=== PATIENT | female | born 1975 | race Caucasian/White ===

== ENCOUNTER → 2020-02-08 10:40 | Outpatient (CLI) | payer OTHER, SELFPAY ==
--- NOTE | ~2020-02-08 | MR_ITS ---
EXAMINATION: MR lumbar spine wo [facility] EXAM DATE: 02/08/2020 11:32 INDICATION: Lumbar radiculopathy. Low back pain and bilateral hip and leg pain. TECHNIQUE: Multi-sequential, multiplanar MR images of the lumbar spine were obtained without contrast . Sagittal T1, T2, T2 fat saturation images. Axial T2 weighted images. There is no prior study for comparison. FINDINGS: Mild disc disease L5-S1. The vertebral body and disc heights are otherwise well maintained. The vertebral bodies are aligned in the AP dimension. The conus medullaris terminates at the L1/2 le gilda and has normal signal intensity and morphology. There are no suspicious marrow signal abnormalit ies. Paraspinal soft tissue is unremarkable. Level by level evaluation: T12-L1: Disc does not extend beyond the endplate margin. Facet arthropathy: Mild to moderate. Neural foraminal stenosis: No stenosis. Central canal stenosis: No stenosis. L1-L2: Disc does not extend beyond the endplate margin. Facet arthropathy: Mild. Neural foraminal stenosis: No stenosis. Central canal stenosis: No stenosis. L2-L3: Disc does not extend beyond the endplate margin. Facet arthropathy: Mild to moderate. Neural foraminal stenosis: No stenosis. Central canal stenosis: No stenosis. L3-L4: There is a minimal diffuse disc bulge. Facet arthropathy: Mild to moderate. Neural foraminal stenosis: Mild bilateral. Central canal stenosis: No stenosis. L4-L5: There is a mild diffuse disc bulge. Facet arthropathy: Moderate. Neural foraminal stenosis: Mild to moderate bilateral. Central canal stenosis: Mild. L5-S1: There is a mild diffuse disc bulge. Facet arthropathy: Moderate. Neural foraminal stenosis: Moderate bilateral. Central canal stenosis: Mild. IMPRESSION: 1. L5-S1 moderate bilateral neural foraminal stenosis. 2. Lesser spondylosis at other levels. Reviewed, dictated and finalized at location A.
== END ==
PROVIDERS: Visit Provider Pain Medicine Interventional Pain Medicine
DX: M54.16 Radiculopathy, lumbar region (principal); G89.4 Chronic pain syndrome; M54.14 Radiculopathy, thoracic region
CPT/HCPCS: 72148

== ENCOUNTER → 2020-02-08 10:50 | Outpatient (CLI) | payer OTHER, SELFPAY ==
--- NOTE | ~2020-02-08 | XR_ITS ---
XR hip BI wo pelvis DATE: 02/08/2020 12:10 INDICATION: Hip pain TECHNIQUE: AP and lateral views of each hip COMPARISON: 12/02/2012 bilateral hip FINDINGS: Surgical clips overlie left and right pelvis. The pubic symphysis and sacroiliac joints appear intact. Hip joint spaces are symmetric and well pres erved. Mild osteoarthritis of each hip. No fracture, dislocation, avascular necrosis or bone destruction of either hip is evident. IMPRESSION: Mild bilateral hip osteoarthritis Reviewed, dictated and finalized at location B.
== END ==
DX: G89.4 Chronic pain syndrome (principal); M54.14 Radiculopathy, thoracic region; M16.0 Bilateral primary osteoarthritis of hip
CPT/HCPCS: 73521

== ENCOUNTER 2020-04-20 09:40 | Outpatient (CLI) | payer OTHER, SELFPAY ==
[2020-04-20 10:08] LABS: Basophils Absolute Auto 0.1 K/mm3 (0.0-0.1); Basophils Percent Auto 0.7 % (0.2-1.2); Eosinophils Absolute Auto 0.1 K/mm3 (0-0.3); Eosinophils Percent Auto 1.3 % (0-4.4); Hematocrit 43.8 % (37.0-47.0); Hemoglobin 14.7 g/dL (12.0-15.0); Immature Granulocyte Absolute 0.04 K/mm3 (0.00-0.031); Immature Granulocyte Percent A 0.5 % (0-0.5); Lymphocytes Absolute Auto 2.99 K/mm3 (0.9-3.2); Lymphocytes Percent Auto 34.6 % (18.3-44.2); Mean Corpuscular HGB Conc 33.6 g/dl (32-36); Mean Corpuscular Hemoglobin 31.5 pg (26-34); Mean Corpuscular Volume 93.8 fl (80-100); Mean Platelet Volume 8.6 fl (7.4-10.4); Monocytes Absolute Auto 0.8 K/mm3 (0.1-0.6); Neutrophils Absolute Auto 4.7 K/mm3 (1.3-6.7); Neutrophils Percent Auto 53.9 % (45.5-73.1); Platelet Count Result 282 k/mm3 (150-375); Red Blood Count 4.67 M/mm3 (4.2-5.4); Red Cell Distribution Width 12.3 % (11.5-14.5); White Blood Count 8.7 K/mm3 (4.5-10.0)
[2020-04-20 10:21] LABS: Alanine Aminotransferase 21 U/L (4-35); Albumin Level 4.1 g/dL (3.5-5.1); Alkaline Phosphatase 64 U/L (38-126); Anion Gap 5 mmol/L (8-16); Aspartate Amino Transferase 18 U/L (14-36); Bilirubin,Total 0.5 mg/dL (0.2-1.3); Blood Urea Nitrogen 15 mg/dL (7-17); Calcium 8.8 mg/dL (8.4-10.2); Carbon Dioxide 31 mmol/L (22-30); Chloride 103 mmol/L (98-107); Cholesterol 261 mg/dL (0-200); Estimated Glomerular Filt Rate > 60; Glucose 85 mg/dL (65-105); HDL Direct 48 mg/dL; Potassium 4.3 mmol/L (3.4-5.0); Sodium 139 mmol/L (137-145); Triglycerides 236 mg/dL (<150)
[2020-04-20 10:33] LABS: LDL Cholesterol Direct 188 mg/dL
[2020-04-20 10:48] LABS: Creatinine Urine 92.9 mg/dL
[2020-04-20 10:55] LABS: MALB Creatinine Ratio < 6.5 mg/g (0-30); Microalbumin Urine Random < 6.0 mg/L (0-16.7)
== END 2020-04-20 09:41 | disposition home or self-care (01) ==
PROVIDERS: PCP Internal Medicine; Visit Provider Internal Medicine
DX: I10 Essential (primary) hypertension (principal); E78.5 Hyperlipidemia, unspecified
CPT/HCPCS: 36415; 80053; 80061; 82043; 85025

== ENCOUNTER 2020-05-17 09:55 | Outpatient (CLI) | payer OTHER, SELFPAY ==
--- NOTE | ~2020-05-17 | MM_ITS ---
EXAMINATION: MM screening [facility] BI w danii HISTORY: Screening mammogram TECHNIQUE: Craniocaudal and mediolateral oblique 3-D tomosynthesis images were obtained and synthetic 2-D images were generated. CAD analysis was submitted and interpreted. COMPARISON: 07/12/2014, 09/16/2011, 01/09/2009 BREAST PARENCHYMAL COMPOSITION: There are scattered areas of fibroglandular density. FINDINGS: There is no evidence of suspicious mass, calcification, or architectural distortion to sugg est malignancy in either breast. There has been no suspicious interval change. IMPRESSION: 1. No mammographic evidence of malignancy. 2. Recommend routine screening mammography in one year. BI-RADS Category 1: Negative Reviewed, dictated and finalized at location A. 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
== END 2020-05-17 09:56 | disposition home or self-care (01) ==
LOC: ANHIMG 09:58
PROVIDERS: PCP Internal Medicine; Visit Provider Internal Medicine
DX: Z12.31 Encounter for screening mammogram for malignant neoplasm of breast (principal)
CPT/HCPCS: 77063; 77067

== ENCOUNTER 2021-02-01 09:28 | Outpatient (CLI) | payer OTHER, SELFPAY ==
[2021-02-01 09:53] LABS: Basophils Absolute Auto 0.1 K/mm3 (0.0-0.1); Basophils Percent Auto 0.7 % (0.2-1.2); Eosinophils Absolute Auto 0.2 K/mm3 (0-0.3); Eosinophils Percent Auto 2.5 % (0-4.4); Hematocrit 41.1 % (37.0-47.0); Hemoglobin 13.5 g/dL (12.0-15.0); Immature Granulocyte Absolute 0.03 K/mm3 (0.00-0.031); Immature Granulocyte Percent A 0.4 % (0-0.5); Lymphocytes Absolute Auto 2.39 K/mm3 (0.9-3.2); Lymphocytes Percent Auto 33.6 % (18.3-44.2); Mean Corpuscular HGB Conc 32.8 g/dl (32-36); Mean Corpuscular Hemoglobin 30.7 pg (26-34); Mean Corpuscular Volume 93.4 fl (80-100); Mean Platelet Volume 8.8 fl (7.4-10.4); Monocytes Absolute Auto 0.6 K/mm3 (0.1-0.6); Neutrophils Absolute Auto 3.9 K/mm3 (1.3-6.7); Neutrophils Percent Auto 54.8 % (45.5-73.1); Platelet Count Result 285 k/mm3 (150-375); Red Cell Distribution Width 12.7 % (11.5-14.5); White Blood Count 7.1 K/mm3 (4.5-10.0)
[2021-02-01 10:07] LABS: Alanine Aminotransferase 26 U/L (4-35); Alkaline Phosphatase 76 U/L (38-126); Anion Gap 8 mmol/L (8-16); Aspartate Amino Transferase 23 U/L (14-36); Bilirubin,Total 0.4 mg/dL (0.2-1.3); Blood Urea Nitrogen 14 mg/dL (7-17); Calcium 9.4 mg/dL (8.4-10.2); Carbon Dioxide 27 mmol/L (22-30); Chloride 103 mmol/L (98-107); Estimated Glomerular Filt Rate > 60; Glucose 101 mg/dL (65-110); Potassium 4.3 mmol/L (3.4-5.0); Sodium 138 mmol/L (137-145)
== END 2021-02-01 09:29 | disposition home or self-care (01) ==
PROVIDERS: PCP Internal Medicine; Visit Provider Internal Medicine
DX: E55.9 Vitamin D deficiency, unspecified (principal); E78.5 Hyperlipidemia, unspecified; F41.1 Generalized anxiety disorder; I10 Essential (primary) hypertension; R79.89 Other specified abnormal findings of blood chemistry
CPT/HCPCS: 36415; 80053; 82306; 84443; 85025

== ENCOUNTER 2021-02-14 10:44 | Outpatient (CLI) | payer OTHER, SELFPAY | END 2021-02-14 10:45 | disposition home or self-care (01) | PROVIDERS: PCP Internal Medicine; Visit Provider Internal Medicine | DX: R79.89 Other specified abnormal findings of blood chemistry (principal) | CPT/HCPCS: 36415; 84439; 84443 ==

== ENCOUNTER 2021-06-13 10:09 | Outpatient (CLI) | payer OTHER, SELFPAY ==
--- NOTE | 2021-06-13 12:24 | WPDPFTINT ---
PFT Procedure Performed PFT Procedure Performed Spirometry with Pre/Post Bronchodilator Plethysmography (Lung Vol) Diffusing Cap (DLCO) Flow Vol Loop PFT Interpretation Lung volumes were measured with the body plethysmography method. The severely diminished expiratory reserve volume is related to morbid obesity. The mildly reduced total lung capacity is indicative restrictive respiratory disease. Spirometry showed normal expiratory flow rates and a normal FEV1 to FVC ratio of 87%. Following administration of a bronchodilator, there was no significant increase in expiratory flow rates. Lung diffusion capacity is mildly reduced at 60% predicted. The flow volume loop is unremarkable. Impression: Mild restrictive respiratory disease, mild reduction in lung diffusion capacity.
== END 2021-06-13 10:10 | disposition home or self-care (01) ==
LOC: ANHPFT 10:13
PROVIDERS: Visit Provider Internal Medicine
DX: J44.9 Chronic obstructive pulmonary disease, unspecified (principal); R94.2 Abnormal results of pulmonary function studies
CPT/HCPCS: 94060; 94726; 94729

== ENCOUNTER → 2021-07-02 02:02 | Outpatient (CLI) | payer OTHER, SELFPAY ==
[2021-07-02 18:04] LABS: Influenza Control Positive
[2021-07-03 03:59] LABS: SARS-CoV-2 RNA PCR Negative
== END ==
PROVIDERS: Internal Medicine; PCP Internal Medicine; Visit Provider Nurse Practitioner
DX: R68.89 Other general symptoms and signs (principal); Z20.822 Contact with and (suspected) exposure to COVID-19
CPT/HCPCS: 87804; C9803; U0003; U0005

== ENCOUNTER 2021-07-18 10:57 | Outpatient (CLI) | payer OTHER, SELFPAY ==
[2021-07-18 13:40] LABS: Free T4 Free Thyroxine 0.96 ng/mL (0.78-2.19)
[2021-07-24 05:51] LABS: Triiodothyronine T3 Free 2.9 pg/mL (2.3-4.2)
== END 2021-07-18 10:58 | disposition home or self-care (01) ==
LOC: ANHWCLAB 11:04
PROVIDERS: PCP Internal Medicine; Visit Provider Internal Medicine Endocrinology, Diabetes & Metabolism
DX: E03.8 Other specified hypothyroidism (principal); E04.9 Nontoxic goiter, unspecified
CPT/HCPCS: 36415; 84439; 84443; 84481

== ENCOUNTER 2021-09-20 09:47 | Outpatient (CLI) | payer OTHER, SELFPAY ==
--- NOTE | ~2021-09-20 | US_ITS ---
EXAMINATION: US thyroid DATE: 09/20/2021 10:11 INDICATION: Hypothyroidism. TECHNIQUE: Multiple ultrasound images of the thyroid were obtained. COMPARISON: Ultrasound 04/05/2013 FINDINGS: The right thyroid lobe measures 3.9 x 1.9 x 1.9 cm. The left thyroid lobe measures 4.0 x 2.1 x 1.7 c m. The thyroid is diffusely heterogeneous and hypoechoic. No discrete nodule. Vascularity is normal. IMPRESSION: 1. Heterogeneous thyroid, likely chronic lymphocytic (Gera) thyroiditis. Reviewed, dictated and finalized at location A.
== END 2021-09-20 09:48 | disposition home or self-care (01) ==
LOC: ANHIMG 09:48
PROVIDERS: PCP Internal Medicine; Visit Provider Internal Medicine Endocrinology, Diabetes & Metabolism
DX: E03.8 Other specified hypothyroidism (principal)
CPT/HCPCS: 76536

== ENCOUNTER 2021-10-02 10:24 | Outpatient (CLI) | payer OTHER, SELFPAY ==
[2021-10-05 06:05] LABS: Triiodothyronine T3 Free 3.4 pg/mL (2.3-4.2)
== END 2021-10-02 10:25 | disposition home or self-care (01) ==
LOC: ANHLAB 10:26
PROVIDERS: PCP Internal Medicine; Visit Provider Internal Medicine Endocrinology, Diabetes & Metabolism
DX: E03.8 Other specified hypothyroidism (principal); E04.9 Nontoxic goiter, unspecified
CPT/HCPCS: 36415; 84439; 84443; 84481

== ENCOUNTER 2021-10-25 09:01 | Outpatient (CLI) | payer OTHER, SELFPAY ==
--- NOTE | ~2021-10-25 | XR_ITS ---
EXAMINATION: XR knee RT 3V DATE: 10/25/2021 09:31 INDICATION: Right knee pain. TECHNIQUE: 3 views of right knee were obtained. COMPARISON: Right knee radiographs 07/19/2015 FINDINGS: There is lateral subluxation of patella. No fracture. There is at least mild osteoarthritis of medial and lateral compartments. There is moderate osteoarthritis of patellofemoral compartment. No knee joint effusion. IMPRESSION: 1. Moderate right knee osteoarthritis. Reviewed, dictated and finalized at location B.
[2021-10-25 09:24] LABS: Basophils Absolute Auto 0.1 K/mm3 (0.0-0.1); Basophils Percent Auto 1.1 % (0.2-1.2); Eosinophils Absolute Auto 0.3 K/mm3 (0-0.3); Eosinophils Percent Auto 3.5 % (0-4.4); Hematocrit 41.4 % (37.0-47.0); Hemoglobin 13.7 g/dL (12.0-15.0); Immature Granulocyte Absolute 0.02 K/mm3 (0.00-0.031); Immature Granulocyte Percent A 0.2 % (0-0.5); Lymphocytes Absolute Auto 2.46 K/mm3 (0.9-3.2); Lymphocytes Percent Auto 30.3 % (18.3-44.2); Mean Corpuscular HGB Conc 33.1 g/dl (32-36); Mean Corpuscular Hemoglobin 30.4 pg (26-34); Mean Platelet Volume 8.7 fl (7.4-10.4); Monocytes Absolute Auto 0.8 K/mm3 (0.1-0.6); Monocytes Percent Auto 9.7 % (2.6-8.5); Neutrophils Absolute Auto 4.5 K/mm3 (1.3-6.7); Neutrophils Percent Auto 55.2 % (45.5-73.1); Platelet Count Result 297 k/mm3 (150-375); Red Cell Distribution Width 12.9 % (11.5-14.5); White Blood Count 8.1 K/mm3 (4.5-10.0)
[2021-10-25 09:37] LABS: Alanine Aminotransferase 19 U/L (4-35); Albumin Level 4.1 g/dL (3.5-5.1); Alkaline Phosphatase 75 U/L (38-126); Anion Gap 6 mmol/L (8-16); Aspartate Amino Transferase 22 U/L (14-36); Bilirubin,Total 0.2 mg/dL (0.2-1.3); Blood Urea Nitrogen 15 mg/dL (7-17); Calcium 8.3 mg/dL (8.4-10.2); Carbon Dioxide 29 mmol/L (22-30); Chloride 103 mmol/L (98-107); Cholesterol 157 mg/dL (0-200); Estimated Glomerular Filt Rate > 60; Glucose 95 mg/dL (65-110); HDL Direct 42 mg/dL; Potassium 4.1 mmol/L (3.4-5.0); Sodium 138 mmol/L (137-145); Triglycerides 172 mg/dL (<150)
[2021-10-25 09:48] LABS: LDL Cholesterol Direct 76 mg/dL
[2021-10-25 10:09] LABS: Vitamin D 25 Hydroxy 26.5 ng/mL
== END 2021-10-25 09:02 | disposition home or self-care (01) ==
PROVIDERS: PCP Internal Medicine; Visit Provider Internal Medicine
DX: M17.11 Unilateral primary osteoarthritis, right knee (principal); F41.1 Generalized anxiety disorder; I10 Essential (primary) hypertension; E03.9 Hypothyroidism, unspecified; E78.2 Mixed hyperlipidemia
CPT/HCPCS: 36415; 73562; 80053; 80061; 82306; 85025

== ENCOUNTER 2021-11-27 01:13 | Day surgery (SDC) | payer OTHER, SELFPAY ==
[2021-11-13 13:37] VITALS: BMI 53.0
[2021-11-27 09:15] VITALS: BP 151/84; PULSE 97; RESP 20; TEMP 36.9; O2SAT 98
[2021-11-27] MEDS: LACTATED RINGERS 1,000 ML 150 ML IV CONT (09:30)
--- NOTE | 2021-11-27 09:57 | PM.HPGS ---
History of Present Illness History of Present Illness Consent: Risks, benefits, and alternatives have been discussed and questions answered. Patient agrees to proceed with procedure. Chief complaint: neoplasm screening Narrative: Maureen Davis is a 46 year old female here for screening colonoscopy, last one 5 years ago. Review of Systems Constitutional: Constitutional: Denies headache(s) and Denies weakness Eyes: Eyes: Denies blurry vision ENT: Reports Normal hearing present, Denies headache(s) and Denies neck pain Cardiovascular: Cardiovascular: Denies chest pain and Denies dyspnea Respiratory: Respiratory: Denies dyspnea Gastrointestinal: Gastrointestinal: Reports no additional gastrointestinal complaints Genitourinary: Genitourinary: Denies dysuria Musculoskeletal: Musculoskeletal: Denies neck pain Integumentary/Breasts: Skin/Breast: Denies dry skin Neurologic: Reports Normal hearing present, Denies headache(s) and Denies weakness Psychiatric: Psychiatric: Denies anxiety Endocrine: Endocrine: Denies change in body appearance Hematologic/Lymphatic: Hematologic/Lymphatic: Denies easy bleeding Allergic/Immunologic: Allergic/Immunologic: Denies urticaria PMFSH Past Medical History Medical History (System 10/08/21 @ 15:16 by Shanika Swain) Allergies Anxiety Arthritis Asthma Fibromyalgia Gall bladder disease H/O: HTN (hypertension) Headache, migraine IBS (irritable bowel syndrome) Osteoarthritis Thyroid disease Family History Family History (System 10/08/21 @ 15:16 by Shanika Swain) Sibling Family history of thyroid disease Hypertension Father Hypertension Mother Hypertension Family history of diabetes mellitus in first degree relative Other Alcoholism Asthma Cancer Cerebrovascular accident Depression Diabetes mellitus Family history of arthritis Family history of cardiovascular disease Heart disease Social History Social History (System 10/08/21 @ 15:16 by Shanika Swain) Years smoked: 9 Smoking status: Current every day smoker Tobacco type: cigarettes Second hand tobacco smoke exposure: No Smoking end date: 10/05/20 Alcohol intake: current Alcohol use details: rarely Substance use: never Substance use type: marijuana Other substance usage details: MJ couple times a week Last use: 11-11-21 Living arrangements: with family Spiritual care concerns: No Meds Home Medications and Allergies Home Medications Medication Instructions Recorded Confirmed Type escitalopram oxalate 20 mg tablet 20 mg PO DAILY 06/16/19 11/13/21 History (Lexapro) fluticasone propionate 50 2 spray intranasal DAILY #16 mL 09/07/19 11/13/21 Rx mcg/actuation nasal spray,suspension (Allergy Relief (fluticasone)) estradiol 0.5 mg tablet 0.5 mg PO DAILY 12/27/19 11/13/21 History trazodone 50 mg tablet 50 mg PO DAILY 12/27/19 11/13/21 History ibuprofen 800 mg tablet 800 mg PO ONCE 05/16/21 11/13/21 History omeprazole 40 mg capsule,delayed See Rx Instructions .Route 06/24/21 11/13/21 Rx release .COMPLEX #90 caps albuterol sulfate 90 mcg/actuation 1 inh inhalation Q4H PRN shortness 06/25/21 11/13/21 Rx aerosol inhaler of breath or wheezing #8.5 grams hydrochlorothiazide 12.5 mg tablet 12.5 mg PO DAILY #90 tabs 07/17/21 11/13/21 Rx lisinopril 20 mg tablet 20 mg PO DAILY #90 tabs 07/17/21 11/13/21 Rx rosuvastatin 40 mg tablet 40 mg PO DAILY #90 tabs 08/01/21 11/13/21 Rx levothyroxine 50 mcg tablet 50 mcg PO DAILY #90 tabs 10/02/21 11/13/21 Rx bupropion HCl 150 mg 24 hr tablet, 150 mg PO DAILY 10/07/21 11/13/21 History extended release tiotropium 2.5 mcg-olodaterol 2.5 2 puff inhalation DAILY #4 grams 10/07/21 11/13/21 Rx mcg/actuation mist for inhalation (Stiolto Respimat) Allergies Allergy/AdvReac Type Severity Reaction Status Date / Time Latex, Natural Rubber Allergy Severe BURNING Verified 11/27/21 09:13 propoxyphene Aller
--- NOTE | 2021-11-27 10:03 | WPDANESEPPF ---
Anes - Initial Pre Proc Eval Procedure: Operation Date: 11/27/21 10:15 Proposed Procedures p Screening Colonoscopy - Akshat Gill MD Date/Time: 11/27/21 10:03 Surgeon: Akshat Gill MD Pre Op Diagnosis: neoplasm screening Patient Data Age: 46 Gender: F Height: 1.57 m Weight: 129.5 kg Last Vital Signs Temp 98.4 F 11/27/21 09:15 Pulse 97 11/27/21 09:15 Resp 20 11/27/21 09:15 BP 151/84 H 11/27/21 09:15 Pulse Ox 98 11/27/21 09:15 O2 Del Method Room Air 11/27/21 09:15 Allergies Allergy/AdvReac Type Severity Reaction Status Date / Time Latex, Natural Rubber Allergy Severe BURNING Verified 11/27/21 09:13 propoxyphene Allergy Intermediate Unknown Verified 11/27/21 09:13 codeine AdvReac Mild Nausea and Verified 11/27/21 09:13 Vomiting ketorolac AdvReac Mild NAUSEA AND Verified 11/27/21 09:13 VOMITING tramadol AdvReac Mild N/V Verified 11/27/21 09:13 Home Medications Medication Instructions Recorded Confirmed Type escitalopram oxalate 20 mg tablet 20 mg PO DAILY 06/16/19 11/13/21 History (Lexapro) fluticasone propionate 50 2 spray intranasal DAILY #16 mL 09/07/19 11/13/21 Rx mcg/actuation nasal spray,suspension (Allergy Relief (fluticasone)) estradiol 0.5 mg tablet 0.5 mg PO DAILY 12/27/19 11/13/21 History trazodone 50 mg tablet 50 mg PO DAILY 12/27/19 11/13/21 History ibuprofen 800 mg tablet 800 mg PO ONCE 05/16/21 11/13/21 History omeprazole 40 mg capsule,delayed See Rx Instructions .Route 06/24/21 11/13/21 Rx release .COMPLEX #90 caps albuterol sulfate 90 mcg/actuation 1 inh inhalation Q4H PRN shortness 06/25/21 11/13/21 Rx aerosol inhaler of breath or wheezing #8.5 grams hydrochlorothiazide 12.5 mg tablet 12.5 mg PO DAILY #90 tabs 01/12/22 05/11/22 Rx lisinopril 20 mg tablet 20 mg PO DAILY #90 tabs 07/17/21 11/13/21 Rx rosuvastatin 40 mg tablet 40 mg PO DAILY #90 tabs 08/01/21 11/13/21 Rx levothyroxine 50 mcg tablet 50 mcg PO DAILY #90 tabs 10/02/21 11/13/21 Rx bupropion HCl 150 mg 24 hr tablet, 150 mg PO DAILY 10/07/21 11/13/21 History extended release tiotropium 2.5 mcg-olodaterol 2.5 2 puff inhalation DAILY #4 grams 10/07/21 11/13/21 Rx mcg/actuation mist for inhalation (Stiolto Respimat) Patient hx anesthesia problems: none Family hx anesthesia problems: none Results Review: All pre-operative results and documents have been reviewed as part of the pre-operative evaluation. [facility] Past Medical History Medical History (System 10/08/21 @ 15:16 by Shanika Swain) Allergies Anxiety Arthritis Asthma Fibromyalgia Gall bladder disease H/O: HTN (hypertension) Headache, migraine IBS (irritable bowel syndrome) Osteoarthritis Thyroid disease Family History Family History (System 10/08/21 @ 15:16 by Shanika Swain) Sibling Family history of thyroid disease Hypertension Father Hypertension Mother Hypertension Family history of diabetes mellitus in first degree relative Other Alcoholism Asthma Cancer Cerebrovascular accident Depression Diabetes mellitus Family history of arthritis Family history of cardiovascular disease Heart disease Social History Social History (System 10/08/21 @ 15:16 by Shanika Swain) Years smoked: 9 Smoking status: Current every day smoker Tobacco type: cigarettes Second hand tobacco smoke exposure: No Smoking end date: 10/05/20 Alcohol intake: current Alcohol use details: rarely Substance use: never Substance use type: marijuana Other substance usage details: MJ couple times a week Last use: 11-11-21 Living arrangements: with family Spiritual care concerns: No Anes - Eval Final PreProcedure Day of Procedure 11/27/21 10:03 Patient weight: super morbidly obese Heart: regular rate and rhythm Lungs: clear to auscultation Airway: Mallampati scale class III Neurological: alert and oriented Last oral intake: >/= 8 hours
[2021-11-27 10:20] VITALS: BP 102/59; PULSE 71; RESP 17; O2SAT 99
[2021-11-27 10:30] VITALS: BP 100/53; PULSE 70; RESP 18; O2SAT 99
[2021-11-27 10:40] VITALS: BP 105/56; PULSE 76; RESP 18; O2SAT 100
== END 2021-11-27 10:50 | disposition home or self-care (01) ==
PROVIDERS: PCP Internal Medicine; Visit Provider Internal Medicine Gastroenterology
PROC: 0DJD8ZZ Inspection of Lower Intestinal Tract, Via Natural or Artificial Opening Endoscopic (ICD-10-PCS; CPT 45378; principal; 2021-11-27 10:15)
DX: Z12.11 Encounter for screening for malignant neoplasm of colon (principal); D12.3 Benign neoplasm of transverse colon; K58.9 Irritable bowel syndrome, unspecified; I10 Essential (primary) hypertension; J45.909 Unspecified asthma, uncomplicated; M19.90 Unspecified osteoarthritis, unspecified site; M79.7 Fibromyalgia; F17.210 Nicotine dependence, cigarettes, uncomplicated; F41.9 Anxiety disorder, unspecified
CPT/HCPCS: 45385; 88305; J2704; J7120

== ENCOUNTER 2022-01-21 13:46 | Outpatient (CLI) | payer OTHER, SELFPAY ==
[2022-01-21 16:28] LABS: Basophils Absolute Auto 0.1 K/mm3 (0.0-0.1); Basophils Percent Auto 1.1 % (0.2-1.2); Eosinophils Absolute Auto 0.2 K/mm3 (0-0.3); Eosinophils Percent Auto 2.4 % (0-4.4); Hematocrit 44.9 % (37.0-47.0); Hemoglobin 14.6 g/dL (12.0-15.0); Immature Granulocyte Absolute 0.02 K/mm3 (0.00-0.031); Immature Granulocyte Percent A 0.3 % (0-0.5); Lymphocytes Absolute Auto 2.81 K/mm3 (0.9-3.2); Lymphocytes Percent Auto 37.9 % (18.3-44.2); Mean Corpuscular HGB Conc 32.5 g/dl (32-36); Mean Corpuscular Hemoglobin 30.3 pg (26-34); Mean Corpuscular Volume 93.2 fl (80-100); Mean Platelet Volume 9.5 fl (7.4-10.4); Monocytes Absolute Auto 0.5 K/mm3 (0.1-0.6); Monocytes Percent Auto 7.3 % (2.6-8.5); Neutrophils Absolute Auto 3.8 K/mm3 (1.3-6.7); Platelet Count Result 337 k/mm3 (150-375); Red Blood Count 4.82 M/mm3 (4.2-5.4); Red Cell Distribution Width 13.2 % (11.5-14.5); White Blood Count 7.4 K/mm3 (4.5-10.0)
[2022-01-21 17:40] LABS: Alanine Aminotransferase 37 U/L (6-35); Albumin Level 4.5 g/dL (3.5-5.1); Alkaline Phosphatase 76 U/L (38-126); Anion Gap 7 mmol/L (8-16); Aspartate Amino Transferase 52 U/L (14-36); Bilirubin,Total 0.4 mg/dL (0.2-1.3); Blood Urea Nitrogen 12 mg/dL (7-17); Calcium 9.7 mg/dL (8.4-10.2); Carbon Dioxide 29 mmol/L (22-30); Chloride 103 mmol/L (98-107); Cholesterol 297 mg/dL (0-200); Estimated Glomerular Filt Rate > 60; Glucose 111 mg/dL (65-110); HDL Direct 41 mg/dL; Potassium 4.3 mmol/L (3.4-5.0); Sodium 139 mmol/L (137-145); Triglycerides 227 mg/dL (<150)
[2022-01-21 17:52] LABS: LDL Cholesterol Direct 194 mg/dL
[2022-01-21 20:06] LABS: Vitamin D 25 Hydroxy 35.4 ng/mL
[2022-01-21 20:07] LABS: Free T4 Free Thyroxine 1.24 ng/mL (0.78-2.19)
== END 2022-01-21 13:47 | disposition home or self-care (01) ==
LOC: ANHWCLAB 13:52
PROVIDERS: PCP Internal Medicine; Visit Provider Internal Medicine Endocrinology, Diabetes & Metabolism
DX: E03.8 Other specified hypothyroidism (principal); E78.2 Mixed hyperlipidemia; I10 Essential (primary) hypertension; E78.5 Hyperlipidemia, unspecified; F41.1 Generalized anxiety disorder
CPT/HCPCS: 36415; 80053; 80061; 82306; 84439; 84443; 85025

== ENCOUNTER 2022-04-23 11:53 | Outpatient (CLI) | payer OTHER, SELFPAY | END 2022-04-23 11:54 | disposition home or self-care (01) | LOC: ANHLAB 11:54 | PROVIDERS: PCP Internal Medicine; Visit Provider Student in an Organized Health Care Education/Training Program | DX: R30.0 Dysuria (principal) | CPT/HCPCS: 87077; 87086; 87186 ==

== ENCOUNTER 2022-04-25 19:18 | Emergency (ER) | payer OTHER, SELFPAY ==
[2022-04-25 19:26] VITALS: BP 145/73; PULSE 81; RESP 18; TEMP 36.1; O2SAT 96
--- NOTE | 2022-04-25 19:50 | PC.NURSE ---
Pt states she has had a hysterectomy
[2022-04-25 19:59] LABS: Basophils Absolute Auto 0.1 K/mm3 (0.0-0.1); Basophils Percent Auto 0.8 % (0.2-1.2); Eosinophils Absolute Auto 0.3 K/mm3 (0-0.3); Eosinophils Percent Auto 2.2 % (0-4.4); Hematocrit 43.8 % (37.0-47.0); Hemoglobin 14.6 g/dL (12.0-15.0); Immature Granulocyte Absolute 0.06 K/mm3 (0.00-0.031); Immature Granulocyte Percent A 0.5 % (0-0.5); Lymphocytes Percent Auto 33.9 % (18.3-44.2); Mean Corpuscular HGB Conc 33.3 g/dl (32-36); Mean Corpuscular Hemoglobin 31.3 pg (26-34); Mean Platelet Volume 8.7 fl (7.4-10.4); Monocytes Percent Auto 8.3 % (2.6-8.5); Neutrophils Absolute Auto 6.7 K/mm3 (1.3-6.7); Neutrophils Percent Auto 54.3 % (45.5-73.1); Platelet Count Result 320 k/mm3 (150-375); Red Blood Count 4.66 M/mm3 (4.2-5.4); Red Cell Distribution Width 13.2 % (11.5-14.5); White Blood Count 12.4 K/mm3 (4.5-10.0)
[2022-04-25 20:12] LABS: Ethanol < 10 mg/dL (<10)
[2022-04-25 20:13] LABS: Acetaminophen < 10 ug/mL (10-30); Salicylate < 1.0 mg/dL (2-20)
[2022-04-25 20:14] LABS: Alanine Aminotransferase 22 U/L (6-35); Albumin Level 4.5 g/dL (3.5-5.1); Alkaline Phosphatase 75 U/L (38-126); Anion Gap 13 mmol/L (8-16); Aspartate Amino Transferase 21 U/L (14-36); Bilirubin,Total 0.3 mg/dL (0.2-1.3); Blood Urea Nitrogen 14 mg/dL (7-17); Calcium 9.1 mg/dL (8.4-10.2); Carbon Dioxide 28 mmol/L (22-30); Chloride 98 mmol/L (98-107); Estimated CRCL calculation 108 ml/min; Estimated Glomerular Filt Rate > 60; Glucose 97 mg/dL (65-110); Potassium 3.7 mmol/L (3.4-5.0); Sodium 139 mmol/L (137-145)
[2022-04-25 20:35] LABS: SARS-CoV-2 RNA PCR Negative
--- NOTE | 2022-04-25 21:08 | ED.PSYCH ---
HPI - Psych General Chief Complaint: Psychiatric Symptoms <Lelia Massey PA-C - Last Filed: 04/26/22 03:17> Stated Complaint: depressed <ARTURO Polanco Last Filed: 04/26/22 03:17> Time Seen by Provider: 04/25/22 19:37 <ARTURO Polanco Last Filed: 04/26/22 03:17> Source: patient <ARTURO Polanco Last Filed: 04/26/22 03:17> Mode of arrival: ambulatory <ARTURO Polanco Last Filed: 04/26/22 03:17> Limitations: no limitations <ARTURO Polanco Last Filed: 04/26/22 03:17> History of Present Illness HPI Narrative: Patient is a 47-year-old female, with a past medical history of depression, who presents the ED with report of suicidal ideation. Patient reports she has been increasingly overwhelmed and feeling depressed over the last couple weeks. She is currently living with her parents and several other family members and trying to find a better housing situation. She states everywhere she turns, she keeps getting let down. Yesterday she reportedly tried to harm herself by using a razor blade against her wrist. She had the razor blade in her hand, but was stopped by her mother. She did not cut herself. She has had guilt about doing this today and no longer feels suicidal. States she does not know why she even tried to do that. Patient denies any previous suicide attempts. Denies HI, AVH. Patient called her psychiatrist today to make an appointment, and was referred to the ED for further evaluation. <ARTURO Polanco Last Filed: 04/26/22 03:17> Related Data Home Medications: Home Medications Medication Instructions Recorded Confirmed escitalopram oxalate 20 mg tablet 20 mg PO DAILY 06/16/19 04/15/22 (Lexapro) ibuprofen 800 mg tablet 800 mg PO ONCE 05/16/21 04/15/22 bupropion HCl 150 mg 24 hr tablet, 150 mg PO DAILY 10/07/21 04/15/22 extended release trazodone 50 mg tablet 100 mg PO DAILY 04/15/22 04/15/22 <Lelia Massey PA-C - Last Filed: 04/26/22 03:17> Allergies/Adverse Reactions: Allergies Allergy/AdvReac Type Severity Reaction Status Date / Time Latex, Natural Rubber Allergy Severe BURNING Verified 04/25/22 19:51 propoxyphene Allergy Intermediate Unknown Verified 04/25/22 19:51 acetaminophen Allergy Mild Muscle Pain Verified 04/25/22 19:51 [From Bonilla-N] codeine AdvReac Mild Nausea and Verified 04/25/22 19:51 Vomiting ketorolac AdvReac Mild NAUSEA AND Verified 04/25/22 19:51 VOMITING tramadol AdvReac Mild N/V Verified 04/25/22 19:51 <Lelia Massey PA-C - Last Filed: 04/26/22 03:17> Review of Systems Review of Systems: CONSTITUTIONAL: Denies fever, chills, or sweats. CARDIOVASCULAR: Denies chest pain. RESPIRATORY: Denies dyspnea. GASTROINTESTINAL: Denies abdominal pain, nausea, vomiting, or diarrhea. PSYCHIATRIC: Reports depression, SI. Denies HI, AVH. <Lelia Massey PA-C - Last Filed: 04/26/22 03:17> All systems reviewed & are unremarkable except as noted in HPI and below <Lelia Massey PA-C - Last Filed: 04/26/22 03:17> [facility] Past Medical History Medical History: Medical History Allergies Anxiety Arthritis Asthma Bulging disc COVID-19 Depression Fibromyalgia Gall bladder disease H/O: HTN (hypertension) Headache, migraine High cholesterol Hypothyroidism IBS (irritable bowel syndrome) Osteoarthritis Screening mammogram, encounter for Spinal stenosis Thyroid disease <Lelia Massey PA-C - Last Filed: 04/26/22 03:17> Surgical History Surgical History: Surgical History H/O colonoscopy (11/27/21) polyp removed precancerous rpt in 5 years History of hysterectomy, supracervical (~11/08/08) emergency after Ablation <Lelia Massey PA-C - Last Filed: 04/26/22 03:17> F
[2022-04-25 21:55] LABS: Add Urine Microscopic? YES; Appearance Urine Cloudy (Clear); Bilirubin Urine Negative (Negative); Blood Urine 2+ (Negative); Color Urine Yellow (Yellow); Glucose Urine UA Negative (Negative); Ketones Urine Negative (Negative); Leukocyte Esterase Ur Negative LEU/UL (Negative); Mucus Urine Rare /lpf; Nitrate Urine Negative (Negative); Protein Urine Negative (Negative); Specific Grav Ur 1.019 (1.001-1.035); Squamous Epithelial Cell Urine Rare /hpf (Few); Urobilinogen Urine Negative mg/dL (<2.0); WBC Urine 0-3 /hpf
[2022-04-25 22:04] LABS: Barbiturate Screen Urine Negative (Negative); Benzodiazepines Screen Urine Negative (Negative)
[2022-04-25 22:06] LABS: Amphetamine Screen Urine Negative (Negative); Cannabinoid Screen Urine Positive (Negative); Cocaine Screen Urine Negative (Negative); Methadone Screen Urine Negative (Negative); Phencyclidine Screen Urine Negative (Negative)
[2022-04-25 22:13] LABS: Opiate Screen Urine Negative (Negative)
== END 2022-04-26 03:32 | disposition home or self-care (01) ==
PROVIDERS: Emergency Medicine; Physician Assistant; Emergency Provider Emergency Medicine; PCP Internal Medicine
DX: F32.A Depression, unspecified (principal); R45.851 Suicidal ideations; Z20.822 Contact with and (suspected) exposure to COVID-19; F41.9 Anxiety disorder, unspecified; J45.909 Unspecified asthma, uncomplicated; I10 Essential (primary) hypertension; E78.00 Pure hypercholesterolemia, unspecified; E07.9 Disorder of thyroid, unspecified; K58.9 Irritable bowel syndrome, unspecified; M79.7 Fibromyalgia; M19.90 Unspecified osteoarthritis, unspecified site; Z86.16 Personal history of COVID-19; Z90.710 Acquired absence of both cervix and uterus; Z86.010 Personal history of colon polyps; Z87.891 Personal history of nicotine dependence
CPT/HCPCS: 36415; 80053; 80307; 81001; 84443; 85025; 99284; C9803; U0003; U0005

== ENCOUNTER 2022-07-03 15:09 | Outpatient (CLI) | payer OTHER, SELFPAY ==
--- NOTE | ~2022-07-03 | MM_ITS ---
EXAMINATION: MM screening [facility] BI w danii HISTORY: Screening mammogram TECHNIQUE: Craniocaudal and mediolateral oblique 3-D tomosynthesis images were obtained and synthetic 2-D images were generated. CAD analysis was submitted and interpreted. COMPARISON: 05/17/2020 and 07/12/2014 bilateral screening mammogram examinations BREAST PARENCHYMAL COMPOSITION: There are scattered areas of fibroglandular density. FINDINGS: There is no evidence of suspicious mass, calcification, or architectural distortion to sugg est malignancy in either breast. There has been no suspicious interval change. IMPRESSION: 1. No mammographic evidence of malignancy. 2. Recommend routine screening mammography in one year. BI-RADS Category 1: Negative Reviewed, dictated and finalized at location A. 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
== END 2022-07-03 15:10 | disposition home or self-care (01) ==
PROVIDERS: PCP Internal Medicine; Visit Provider Student in an Organized Health Care Education/Training Program
DX: Z12.31 Encounter for screening mammogram for malignant neoplasm of breast (principal)
CPT/HCPCS: 77063; 77067

== ENCOUNTER 2022-07-23 08:45 | Outpatient (CLI) | payer OTHER, SELFPAY ==
--- NOTE | 2022-07-23 11:00 | NEURO_ITS ---
Impression: Patient reports a history of bilateral lower extremity pain. 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 # Normal needle/EMG exam. # Clinical correlation recommended. Motor Nerve Conduction Lower Extremities Peroneal Nerve Conduction Velocity (m/sec) Terminal Latency (msec) Response Voltage(mV) Popliteal space-Ankle Ankle Extensor Dig Brevis Popliteal space Ankle Right 51-49 3.0 3-3 3 Left 51-49 3.0 2-2 2 Tibial Nerve Conduction Velocity (m/sec) Terminal Latency (msec) Response Voltage(mV) Popliteal space-Ankle Ankle-Extensor Dig Brevis Popliteal space Ankle Right 53 3.3 4 3 Left 52 3.0 5 3 F-waves Peroneal Nerve (ms) Tibial Nerve (ms) Right 44.5 45.5 Left 45.2 45.3 Sensory Nerve Conduction Lower Extremities Sural Nerve Stimulation Terminal Latency (msec) Ankle Response Voltage (uV) Ankle Response Velocity (m/sec) Right 3.6 4 44 Left 3.7 8 43 Superficial Peroneal Nerve Stimulation Terminal Latency (msec) Ankle Response Voltage (uV) Ankle Response Velocity (m/sec) Right 3.2 11 53 Left 3.7 3 43 Left Right Muscles Examined Fibrillation Fasciculation Scarcity Voltage Duration Left Right Left Right Left Right Left Right Left Right X X Ant Tibialis X X Gastroc X X Fibularis Long X X Flex Dig Long X X Ext Dig Brev Abd Hallucis Quadriceps Paraspinals MTDD
== END 2022-07-23 08:46 | disposition home or self-care (01) ==
PROVIDERS: PCP Internal Medicine; Visit Provider Orthopaedic Surgery
DX: G57.50 Tarsal tunnel syndrome, unspecified lower limb (principal)
CPT/HCPCS: 95886; 95910

== ENCOUNTER 2024-11-21 16:28 | Emergency (ER) | payer MEDICARE, MEDICAID, SELFPAY ==
--- OUTSIDE RECORDS SUMMARY | 2024-11-21 16:31 | XMS_ITS | Encounter Summary ---
Author Organization [facility] Health Address [address] 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
--- OUTSIDE RECORDS SUMMARY | 2024-11-21 16:31 | XMS_ITS | Encounter Summary ---
Author Organization [facility] Health Address [address] 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
--- OUTSIDE RECORDS SUMMARY | 2024-11-21 16:31 | XMS_ITS | Encounter Summary ---
Author Organization [facility] Health Address [address] [place] [address] Care Team Providers Care Equipment Inspector Name Role Phone Lokesh Zelaya MD Primary Care Provider [phone] Jose Raul Nichols MD Primary Care Provider [phone] Encounter Details Date Type Department Care Team (Late st Contact Info) Description 12/15/2019 [facility] Unknown, Provider Social History Tobacco Use Types Packs/Day Years Used Date Smoking Tobacco: Never Assessed Comments Unknown Sex and Gender Information Value Date Recorded Sex Assigned at Female 03/25/2021 5:15 PM CDT Legal Sex Female 8:52 AM SPACE SYSTEMS OPERATIONS 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
--- OUTSIDE RECORDS SUMMARY | 2024-11-21 16:31 | XMS_ITS | Clinical Summary ---
Author Organization [facility] Address [address] [place] [phone] Phone Care Team Providers Care Whirley Operator Name Role Phone Provider, None Primary Care Provider Unavailabl e Allergies Active Allergy Reactions Criticality Noted Date Comments Ketorolac Vomiting Medium 08/29/2019 Pregabalin Shortness of Breath High 08/29/2019 Propoxyphene Other (see Comments) 08/29/2019 Tramadol Other (see Comments) High 08/29/2019 Medications buPROPion (WELLBUTRIN) 150 MG XL tablet TK 1 T PO QD IN THE MORNING 06/08/20 20 Active D3-50 1.25 MG (46703 UT) Capsule TK 1 C PO WEEKLY 05/09/20 20 Active escitalopram (LEXAPRO) 20 MG Tablet every 24 hours Activ e estradiol (ESTRACE) 0.5 MG Tablet every 24 hours Activ e hydroCHLOROth iazide 12.5 MG Tablet hydrochlorothiazide 12.5 mg tablet TAKE ONE TABLET BY MOUTH EVERY DAY Active HYDROcodone-a cetaminophen (NORCO) 5-325 MG Tablet every 6 hours Active Ibuprofen 200 MG Capsule every 24 hours Acti ve lisinopril (PRINIVIL, ZESTRIL) 20 MG Tablet every 24 hours 03/06/20 19 Active omeprazole (PriLOSEC) 40 MG CAPSULE DELAYED RELEASE Take 40 mg by mouth. 0 19 Active methocarbamol (ROBAXIN) 500 MG Tablet TK 1 T PO QHS 05/15/20 20 Active QUEtiapine Fumarate (SEROquel) 50 MG Tablet every 24 hours 06/05/20 19 Active rosuvastatin (CRESTOR) 20 MG Tablet every 24 hours Activ e traZODone (DESYREL) 50 MG Tablet TK 1 T PO QD HS 05/16/20 20 Active methylPREDNIS olone (MEDROL, AC, PO) Take by mouth. 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 Gender Identity Not on file Sexual Orientation Not on file Last Filed Vital Signs Vital Sign Reading Time Taken Comments Blood Pressure 148/98 06/13/2020 10:57 AM BUTTERMILK DRIER OPERATOR Pulse 86 06/13/2020 10:57 AM BUTTERMILK DRIER OPERATOR Temperature 36.1 C (97 F) 06/13/2020 10:57 AM BUTTERMILK DRIER OPERATOR Respiratory Rate - - Oxygen Saturation 97% 06/13/2020 10:57 AM BUTTERMILK DRIER OPERATOR Inhaled Oxygen Concentration - - Weight - - Height - - Body Mass Index - - Plan of Treatment Health Maintenance Due Date Last Done Comments Hepatitis C Virus (HCV) Screening 1974 TdaP Immunization 1974 Hepatitis B Immunization (1 of 3 - 19+ 3-dose series) 1993 Colonoscopy 2019 Colorectal Cancer Screening 2019 Cologuard 02/17/2024 Immunochemical Fecal Occult Blood 02/17/2024 Pneumococcal Immunization (5 0+ years) (1 of 1 - PCV) 02/17/2024 Zoster Immunization (1 of 2) 02/17/2024 Influenza Immunization (#1) 2024 SARS-COV-2 Immunization ( - 2023-25 season) 2024 Respiratory Syncytial Virus (RSV) Immunization (Adult) (1 - 1-dose 75+ series) 2049 Meningococcal Immunization (ACWY) Aged Out No longer eligible based on patient's age to complete this topic Rotavirus Immunization Aged Out No lo nger eligible based on patient's age to complete this topic Care Teams Whirley Operator Relationship Specialty Start Date End Date Provider, None [place] PCP - General 06/13/20
--- OUTSIDE RECORDS SUMMARY | 2024-11-21 16:31 | XMS_ITS | Encounter Summary ---
Author Organization [facility] Health Address [address] 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
--- OUTSIDE RECORDS SUMMARY | 2024-11-21 16:31 | XMS_ITS | Encounter Summary ---
Author Organization [facility] Health Address [address] [place] [address] Care Team Providers Care Bake Room Worker Name Role Phone Lokesh Zelaya MD Primary Care Provider [phone] Jose Raul Nichols MD Primary Care Provider [phone] Encounter Details Date Type Department Care Team (Late st Contact Info) Description 11/15/2019 [facility] Unknown, Provider Social History Tobacco Use Types Packs/Day Years Used Date Smoking Tobacco: Never Assessed Comments Unknown Sex and Gender Information Value Date Recorded Sex Assigned at Female 03/25/2021 5:15 PM CDT Legal Sex Female 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
--- OUTSIDE RECORDS SUMMARY | 2024-11-21 16:31 | XMS_ITS | Continuity of Care Document ---
Author Organization [facility] Address [address] [place] [address] [place] [address] Phone Care Team Providers Care Customer Operations Intern Name Role Phone Bernard Bryant DO Unavailable Unavailable Advance Directives Directive Yes / No Effective Date File Name No Information Encounters Encounter Description Practice Location Reason(s) For Visit Diagnoses Date Provider Providers Copied on Encounter [facility], [address], [place], [place], [id number], [place] tel:[phone] [facility] No Information Manny Metz. [address], [place], [address], [place]. tel:[phone] Family History Family Member Type Diagnosis Age At Onset No Information Payers Payer name Insurance type Covered republican ID Authoriza tion(s) No Information Social History Type Description Quantity Date Captured Comments Sex Female Smoking Status No Information Chief Complaint And Reason For Visit No Information Reason For Referral Reason For Referral No Information History Of Present Illness Encounter Date Complaint History Of Prese nt Illness No Information Functional Status Date Functional Assessmen t No Information Instructions Date Instruction Additional Infor mation No Information Assessments Type Assessment Date No Information Patient Care Teams Name Effective Dates (start - stop) Status Members No Information
--- OUTSIDE RECORDS SUMMARY | 2024-11-21 16:31 | XMS_ITS | Encounter Summary ---
Author Organization [facility] Health Address [address] 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
--- OUTSIDE RECORDS SUMMARY | 2024-11-21 16:31 | XMS_ITS | Encounter Summary ---
Author Organization [facility] Health Address [address] [place] [address] Care Team Providers Care Library Associate Name Role Phone Lokesh Zelaya MD Primary Care Provider [phone] Jose Raul Nichols MD Primary Care Provider [phone] Encounter Details Date Type Department Care Team (Late st Contact Info) Description 09/06/2019 [facility] Unknown, Provider Social History Tobacco Use Types Packs/Day Years Used Date Smoking Tobacco: Never Assessed Comments Unknown Sex and Gender Information Value Date Recorded Sex Assigned at Female 03/25/2021 5:15 PM CDT Legal 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
--- OUTSIDE RECORDS SUMMARY | 2024-11-21 16:31 | XMS_ITS | Clinical Summary ---
Author Organization [facility] [employer] Address [address] [place] [address] Care Team Providers Care Tanker Serviceman Name Role Phone Jose Raul Nichols MD Primary Care Provider [phone] Source Comments [facility] Affiliates and Associated Physician Practices is amultiple site organization consisting of ambulatory clinics and hospital sitesin [place], [place], [place] and [place]. This disclosure is being madepursuant to the Care Everywhere program and may not contain all information available regarding this patient. Last updated 18.[facility] [employer] [facility] Allergies Active Allergy Reactions Criticality Noted Date Comments Propoxyphene Myalgias 08/29/2019 Ketorolac Vomiting Medium 08/29/2019 Latex Skin Reactions 03/25/2021 Feel like skin on fire Pregabalin Shortness of Breath High 08/29/2019 Tramadol Nausea and/or Vomiting High 08/29/2019 Medications * Be aware that medications may not be up to date on this document. Alwaysverify current medications with the patient. escitalopram (LEXAPRO) 20 MG tablet once daily Active estradiol (ESTRACE) 0.5 MG tablet once daily Active hydroCHLOROth iazide (HYDRODIURIL) 12.5 MG hydrochlorothiazide 12.5 mg tablet TAKE ONE TABLET BY MOUTH EVERY DAY Active rosuvastatin (CRESTOR) 20 MG tablet at bedtime Active lisinopril (PRINIVIL; ZESTRIL) 20 MG tablet once daily 03/06/20 19 Active omeprazole (PRILOSEC) 40 MG capsule Take 40 mg by mouth once daily 06/27/20 19 Active fluticasone propionate (FLONASE) 50 MCG/ACT nasal spray Rougon 2 sprays into each nostril once daily as needed Active buPROPion XL 24hr (WELLBUTRIN-X L) 150 MG tablet TAKE 1 TABLET BY MOUTH EVERY DAY IN THE MORNING 02/29/20 21 Active ibuprofen (MOTRIN) 800 MG tablet Take 800 mg by mouth 2 times daily with morning and evening meal 11/25/19 21 Active methocarbamol (ROBAXIN) 500 MG tablet Take 500 mg by mouth at bedtime 03/03/20 21 Active traZODone (DESYREL) 50 MG tablet TAKE 1 TABLET BY MOUTH EVERY DAY AT BEDTIME 01/25/20 21 Active albuterol HFA (PROAIR HFA) 108 (90 Base) MCG/ACT inhaler Inhale 2 puffs by mouth every 6 hours as needed Active HYDROcodone-a cetaminophen (NORCO) 5-325 MG tablet Take 1 (one) tablet by mouth every 6 hours as needed for Pain 12 tablet 05/10/20 Active Additional Information Patient not taking.Reported on 06/06/2021 Active Problems Problem Noted Date Diagnosed Date Postoperative pain 05/09/2021 Essential hypertension 05/09/2021 Carpal tunnel syndrome of right wrist 05/09/2021 Tobacco use disorder 05/09/2021 BMI 50.0-59.9, adult 04/15/2021 Social History Tobacco Use Types Packs/Day Years Used Date Smoking Tobacco: Every Day Cigarettes Smokeless Tobacco: Never Comments:pt reports 10 cigs per day Alcohol Use Standard Drinks/Week Comments Yes 0 (1 standard drink = 0.6 oz pur e alcohol) very seldom Comments No Sex and Gender Information Value Date Recorded Sex Assigned at Female 03/25/2021 5:15 PM CDT 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 Gender Identity Female 03/25/2021 5:15 PM CDT Sexual Orientation Straight 03/25/2021 5: 15 PM CDT Last Filed Vital Signs Vital Sign Reading Time Taken Comments Blood Pressure 116/51 05/10/2021 8:09 AM CDT Pulse 55 05/10/2021 8:09 AM CDT Temperature 36.5 C (97.7 F) 05/10/2021 8:09 AM CDT Respiratory Rate 16 05/10/2021 8:09 AM CDT Oxygen Saturation 92% 05/10/2021 8:09 AM CDT Inhaled Oxygen Concentration - - Weight 131.7 kg (290 lb 6.4 oz) 021 12:28 PM CDT Height 160 cm (5' 3 ) 05/09/2021 12:28 PM CDT Body Mass Index 51.44 05/09/2021 12:28 PM CDT Plan of Treatment Health Maintenance Due Date Last Done Comments COLOGUARD (AGES 45-75) - COL ON CA SCREENING 1974 COLON MONITORING 1974 COLONOSCOPY - COLON CA SCREENING 1974 CT COLONOGRAPHY - COLON CA SCREENING 1974 Colorectal Cancer Screening 1974 FIT - COLON CA SCREENING 1974 FLEX SIG - COLON CA SCREENING 1974 MAMMOGRAM 1974 HIV SCREENING 1989 HEPATITIS C SCREENING 02/12/1992 DTAP/TDAP/TD VACCINES (1 - Tdap) 1993 HEPATITIS B VACCINE (1 of 3 - 19+ 3-dose series) 1993 PNEUMOCOCCAL VACCINE 50+ (1 of 2 - PCV) 1993 SCREENING FOR DIABETES 04/15/2021 ZOSTER VACCINE (1 of 2) 02/17/2024 COVID-19 VACCINE (1 - 2023-2 5 season) 2024 DEPRESSION SCREENING 07/06/2024 INFLUENZA VACCINE (Season Ended) 2025 HIB VACCINE Aged Out No longer eligi ble based on patient's age to complete this topic HPV VACCINE Aged Out No longer eligi ble based on patient's age to complete this topic MENINGOCOCCAL (Group B) VACC INE SHARED DECISION-MAKING Aged Out No longer eligibl e based on patient's age to complete this topic MENINGOCOCCAL GROUPS A/C/Y/W VACCINE Aged Out No longer eligible b ased on patient's age to complete this topic Insurance AETNA AETNA Advance Directives * Full Code (Latest Code Status on File) Date Activated Date Inactivated Comments 05/09/2021 11:48 PM 05/10/2021 12:52 PM * Full Code Date Activated Date Inactivated Comments 05/09/2021 9:40 PM 05/09/2021 11:48 PM Care Teams Tanker Serviceman Relationship Specialty Start Date End Date Jose Raul Nichols MD [address] [place] [phone] PCP - General 11/28/21
--- OUTSIDE RECORDS SUMMARY | 2024-11-21 16:31 | XMS_ITS | Referral Summary ---
Author Organization [facility] Address [address] [place] [address] Care Team Providers Care Drop Wire Aligner Name Role Phone Lokesh Zelaya MD Primary Care Provider [phone] Allergies Active Allergy Reactions Criticality Noted Date Comments Ketorolac Vomiting Medium 08/29/2019 Latex Rash Medium 03/25/2021 Feel like skin on fire Pregabalin Shortness of breath High 08/29/2019 Propoxyphene Muscle pain,Other (S ee comments) Medium 08/29/2019 Tramadol Nausea And Vomiting,Other (See comments) High 08/29/2019 Medications albuterol HFA (PROVENTIL HFA,VENTOLIN HFA,PROAIR HFA) 90 mcg/actuation inhaler Inhale 2 puffs every 6 (six) hours as needed Act jason buPROPion XL (WELLBUTRIN XL) 150 mg 24 hr tablet Take 1 tablet by mouth every morning 06/08/20 20 Active escitalopram (LEXAPRO) 20 mg tablet Take 20 mg by mouth every morning 03/04/20 21 Active estradioL (ESTRACE) 0.5 mg tablet daily Active fluticasone propionate (FLONASE) 50 mcg/actuation nasal spray Administer 2 sprays into affected nostril(s) daily Active hydroCHLOROth iazide (HYDRODIURIL) 12.5 mg tablet hydrochlorothiazide 12.5 mg tablet TAKE ONE TABLET BY MOUTH EVERY DAY Active ibuprofen (ADVIL,MOTRIN ) 800 mg tablet Take 800 mg by mouth 0 21 Active lisinopriL (PRINIVIL,ZES TRIL) 20 mg tablet Take 20 mg by mouth daily 02/22/20 21 Active omeprazole (PriLOSEC) 40 mg capsule Take 40 mg by mouth daily 03/03/20 21 Active rosuvastatin (CRESTOR) 40 mg tablet Take 40 mg by mouth daily 01/22/20 21 Active traZODone (DESYREL) 50 mg tablet Take 1 tablet by mouth nightly 05/16/20 20 Active meloxicam (MOBIC) 7.5 mg tablet Take 1 tablet (7.5 mg total) by mouth 2 (two) times a day for 15 days 30 tablet 11/25/19 24 Active methocarbamoL (ROBAXIN) 500 mg tablet Take 1 tablet (500 mg total) by mouth 2 (two) times a day 20 tablet 11/25/19 24 Active Active Problems Problem Noted Date Diagnosed Date BMI 50.0-59.9, adult 04/15/2021 Social History Tobacco Use Types Packs/Day Years Used Date Smoking Tobacco: Every Day Smokeless Tobacco: Never AUDIT-C Answer Date Recorded Q1: How often do you have a drink containing alc ohol? Monthly or less 04/15/2021 Average Number of Drinks Not on file 021 Frequency of Binge Drinking Not on file 04/05 Personal Safety Answer Date Recorded Have you ever been in or are you currently in a harmful physical or emotional relationship or is someone making you feel afraid or unsafe? Denies 11/25/2023 Comments No Sex and Gender Information Value Date Recorded Sex Assigned at Not on file Legal Sex Female 12:59 AM GRASS FARMER Gender Identity Female 05/15/2020 6:38 PM GRASS FARMER Sexual Orientation Straight 05/15/2020 6: 38 PM GRASS FARMER Last Filed Vital Signs Vital Sign Reading Time Taken Comments Blood Pressure 141/75 11/25/2023 12:23 PM CDT Pulse 82 11/25/2023 12:23 PM CDT Temperature 36.6 C (97.9 F) 11/25/2023 8:57 AM CDT Respiratory Rate 16 11/25/2023 12:23 PM CDT Oxygen Saturation 97% 11/25/2023 12:23 PM CDT Inhaled Oxygen Concentration - - Weight 119.7 kg (264 lb) 11/25/2023 8:57 AM CDT Height 160 cm (5' 3 ) 11/25/2023 8:57 AM CDT Body Mass Index 46.77 11/25/2023 8:57 AM CDT Plan of Treatment Not on file Procedures Procedure Name Priority Date/Time Associated Diagnosis Comments SCREENING MAMMOGRAM BILATERAL W SUDARSHAN Routine 11/05/2016 12:00 AM CDT from Last 3 Months or Most Recently Relevant to Health Maintenance Results * Screening Mammogram Bilateral W Sudarshan (11/05/2016 12:00 AM CDT) Anatomical Region Laterality Modality Breast Bilateral Mammography 11/05/2016 4:53 PM CDT Narrative 11/05/2016 4:53 PM CDT - SCREENING MAMM W SUDARSHAN BI BILATERAL DIGITAL SCREENING MAMMOGRAM 3D/2D WITH CAD: 11/05/2016 CLINICAL: Patient presents for bilateral mammogram without complaints. Comparison is made to exams dated: 11/06/2015 [facility] and 07/12/2014 [facility]. The tissue of both breasts is heterogeneously dense. This may lower the sensitivity of mammography. Current study was also evaluated with a Computer Aided Detection (CAD) system. There are benign calcifications left breast. No significant masses, calcifications, or other findings are seen in either breast. There has been no significant interval change. IMPRESSION: BENIGN There is no mammographic evidence of malignancy. A 1 year screening mammogram is recommended. The patient will be contacted by letter. Lela Hammer M.D. lrp/penrad:11/06/2016 08:09:12 copy to: Quentin Altman, ph: [phone], fax: [phone] letter sent: Normal Exam Mammogram BI-RADS: 2 Benign Radiologist: LELA HAMMER M.D. Attending: GERSON BUCHANAN Requesting: GERSON BUCHANAN Requesting Requesting ID: [id number] Attending Attending ID: [id number] Completed Time: 11/05/2016 11:53 AM Dictated Time: N/A Transcribed Time: 11/06/2016 08:26 AM Signed by: LELA HAMMER M.D. on 11/06/2016 08:26 AM Report To 1 ID: [id number] Report To 1 Name: QUENTIN ALTMAN Report To 1 FAX: Report To 2 ID: Report To 2 Name: , Report To 2 FAX: Report To 3 ID: Report To 3 Name: , Report To 3 FAX: NextGen Order #: Procedure Note Miscellaneous, Not In File / Provider, MD Santana - 11/29/2016 - SCREENING MAMM W SUDARSHAN BI BILATERAL DIGITAL SCREENING MAMMOGRAM 3D/2D WITH CAD: 11/05/2016 CLINICAL: Patient presents for bilateral mammogram without complaints. Comparison is made to exams dated: 11/06/2015 [facility] and 07/12/2014 [facility]. The tissue of both breasts is heterogeneously dense. This may lower the sensitivity of mammography. Current study was also evaluated with a Computer Aided Detection (CAD) system. There are benign calcifications left breast. No significant masses, calcifications, or other findings are seen in either breast. There has been no significant interval change. IMPRESSION: BENIGN There is no mammographic evidence of malignancy. A 1 year screening mammogram is recommended. The patient will be contacted by letter. Lela Hammer M.D. [facility]/penrad:11/06/2016 08:09:12 copy to: Quentin Paula Altman, ph: [phone], fax: [phone] letter sent: Normal Exam Mammogram BI-RADS: 2 Benign Radiologist: LELA HAMMER M.D. Attending: GERSON BUCHANAN Requesting: GERSON BUCHANAN Requesting Requesting ID: [id number] Attending Attending ID: [id number] Completed Time: 11/05/2016 11:53 AM Dictated Time: N/A Transcribed Time: 11/06/2016 08:26 AM Signed by: LELA HAMMER M.D. on 11/06/2016 08:26 AM Report To 1 ID: [id number] Report To 1 Name: QUENTIN ALTMAN Report To 1 FAX: Report To 2 ID: Report To 2 Name: , Report To 2 FAX: Report To 3 ID: Report To 3 Name: , Report To 3 FAX: NextGen Order #: Gerson Buchanan MD IMG MAMMO PROCEDURES Final Re sult from Last 3 Months or Most Recently Relevant to Health Maintenance Insurance [facility] MEDICARE IDIN Care Teams Drop Wire Aligner Relationship Specialty Start Date End Date Lokesh Zelaya MD [address] [place] [address] PCP - General Internal Medicine 05/15/20
--- OUTSIDE RECORDS SUMMARY | 2024-11-21 16:31 | XMS_ITS | Clinical Summary ---
Author Organization [facility] Address [address] [place] [address] Care Team Providers Care Account Technician Name Role Phone Lokesh Zelaya MD Primary Care Provider [phone] Allergies Active Allergy Reactions Criticality Noted Date [...] Date Diagnosed Date BMI 50.0-59.9, adult 04/15/2021 Surgical History Surgery Date Site/Laterality Comments OVARIAN CYST DRAINAGE SECTION ENDOMETRIAL ABLATION HYSTERECTOMY TONSILLECTOMY AND ADENOIDECTOMY HERNIA REPAIR KNEE SURGERY CARPAL TUNNEL RELEASE Medical History Medical History Date Comments Arthritis Asthma Depression Fibromyalgia, primary GERD (gastroesophageal reflux disease) Hypertension Hypercholesteremia Joint pain Irritable bowel syndrome Thyroid disease Morbid obesity (HCC) PTSD (post-traumatic stress disorder) Family History Medical History Relation Name Comments Diabetes Father Heart disease Father Hypertension Father Obesity Father Diabetes Mother Heart disease Mother Hypertension Mother Obesity Mother Relation Name Status Comments Father Mother Social History Tobacco Use Types Packs/Day Years [...] on file 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 Gender Identity Female 05/15/2020 6:38 PM 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 Sexual Orientation Straight 05/15/2020 6: 38 PM 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 Obstetrics History Last Filed Vital Signs Vital Sign Reading [...] 11/25/2023 8:57 AM CDT Plan of Treatment Health Maintenance Due Date Last Done Comments Colon Cancer Screening-Colonoscopy 1974 Depression Screening 1974 Hepatitis C Screening 1974 Hepatitis B Screening 02/17/1992 Regular Well Visit/Exam 18-64 02/17/1992 Pneumococcal vaccine <65 (1 of 2 - PCV) 1993 Breast Cancer Screening-Mammogram 11/05/2017 11/05/2016, 11/05/2016, 11/06/2015 DTaP/Tdap/Td Vaccine (2 - Td or Tdap) 06/05/202007/2009 Zoster Vaccine (1 of 2) 02/17/2024 Influenza Vaccine (#1) 2024 0, 06/07/2019, 05/20/2018 Procedures Procedure Name Priority Date/Time Associated Diagnosis [...] Comparison is made to exams dated: 11/06/2015 [facility] and 07/12/2014 [facility]. The tissue of both breasts [...] lrp/penrad:11/06/2016 08:09:12 copy to: Quentin Altman, ph: [phone], fax: [phone] letter sent: Normal Exam Mammogram BI-RADS: 2 Benign Radiologist: LELA HAMMER M.D. Attending: GERSON BUCHANAN Requesting: GERSON BUCHANAN Requesting Requesting ID: [id number] Attending Attending ID: [id number] Completed Time: 11/05/2016 11:53 AM Dictated Time: N/A Transcribed Time: 11/06/2016 08:26 AM Signed by: LELA HAMMER M.D. on 11/06/2016 08:26 AM Report To 1 ID: [id number] Report To 1 Name: QUENTIN ALTMAN Report [...] Comparison is made to exams dated: 11/06/2015 [facility] and 07/12/2014 [facility]. The tissue of both breasts [...] patient will be contacted by letter. Lela ash/penrad:11/06/2016 08:09:12 copy to: Quentin ChanceFinn Altman, ph: [phone], fax: [phone] letter sent: Normal Exam Mammogram BI-RADS: 2 Benign Radiologist: LELA HAMMER M.D. Attending: GERSON BUCHANAN Requesting: GERSON BUCHANAN Requesting Requesting ID: [id number] Attending Attending ID: [id number] Completed Time: 11/05/2016 11:53 AM Dictated Time: N/A Transcribed Time: 11/06/2016 08:26 AM Signed by: LELA HAMMER M.D. on 11/06/2016 08:26 AM Report To 1 ID: [id number] Report To 1 Name: QUENTIN ALTMAN Report To 1 FAX: Report To 2 ID: Report To 2 Name: , Report To 2 FAX: Report To 3 ID: Report To 3 Name: , Report To 3 FAX: NextGen Order #: Gerson Buchanan MD IMG MAMMO PROCEDURES Final Re sult from Last 3 Months or Most Recently Relevant to Health Maintenance Insurance [facility] IDDE [facility] MEDICARE IDPA Care Teams Account Technician Relationship Specialty Start Date End Date Lokesh Zelaya MD [address] [facility] [address] [place] [address] PCP - General Internal Medicine 05/15/20
--- OUTSIDE RECORDS SUMMARY | 2024-11-21 16:31 | XMS_ITS | Clinical Summary ---
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 Name Role Phone Unavailable Primary Care Provider Unavailabl e Allergies Active Allergy Reactions Criticality Noted Date Comments Codeine Nausea and Vomiting Low 09/16/2022 Ketorolac Nausea and Vomiting,Dizziness Low 2022 Tramadol Nausea and Vomiting,Dizziness Low 2022 Medications No known medications Social History Tobacco Use Types Packs/Day Years Used Date Smoking Tobacco: Every Day Cigarettes Smokeless Tobacco: Never Alcohol Use Standard Drinks/Week Comments Not Currently 0 (1 standard drink = 0.6 oz pur e alcohol) Feeling Safe Answer Date Recorded Are you in a relationship wi th someone who hurts you emotionally and/or physically? 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 Gender Identity Not on file Sexual Orientation Not on file Last Filed Vital Signs Vital Sign Reading Time Taken Comments Blood Pressure 139/69 09/16/2022 6:29 PM CDT Pulse 90 09/16/2022 5:23 PM CDT Temperature 36.9 C (98.5 F) 09/16/2022 5:23 PM CDT Respiratory Rate 20 09/16/2022 6:29 PM CDT Oxygen Saturation 100% 09/16/2022 6:29 PM CDT Inhaled Oxygen Concentration - - Weight 122.9 kg (271 lb) 09/16/2022 5:23 PM CDT Height 157.5 cm (5' 2 ) 09/16/2022 5:23 PM CDT Body Mass Index 49.57 09/16/2022 5:23 PM CDT Plan of Treatment Health Maintenance Due Date Last Done Comments DTAP/TDAP/TD VACCINES (1 - Tdap) 1993 HEPATITIS B VACCINES (1 of 3 - 19+ 3-dose series) 1993 BREAST CANCER SCREENING 11/05/2017 11/05/2016, 11/05 COLORECTAL SCREENING 2019 Colorectal Cancer Screening 2019 FIT-DNA Q 3 years 2019 FIT/FOBT Q 1 year 2019 Flex Sig/CT Colonography Q 5 years 2019 INFLUENZA VACCINE (#1) 2024 05/20/2018 ZOSTER VACCINE (1 of 2) 02/17/2024
--- OUTSIDE RECORDS SUMMARY | 2024-11-21 16:40 | XMS_ITS | Continuity of Care Document ---
Author Organization [facility] Address [id number] [place] [address] [place] [address] Phone Care Team Providers Care Welcome Hostess Name Role Phone Bernard Bryant DO Unavailable Unavailable Advance Directives Directive Yes / No Effective Date File Name No Information Encounters Encounter Description Practice Location Reason(s) For Visit Diagnoses Date Provider Providers Copied on Encounter [facility], [address] [place], [place], [id number], [place] tel:[phone] [address] [facility] No Information Manny Metz. [address] [facility], [place], [address], [place]. tel:[phone] Family History Family Member Type Diagnosis Age At Onset No Information Payers Payer name Insurance type Covered democrat ID Authoriza tion(s) No Information Social History [...]
--- NOTE | 2024-11-21 16:45 | ED.SKABFB ---
HPI - Skin/Abscess/Foreign Bdy General Chief complaint: Skin/Abscess/Foreign Body Stated complaint: Skin Problem Time Seen by Provider: 11/21/24 16:47 Source: patient and RN notes reviewed Mode of arrival: ambulatory Limitations: dementia History of Present Illness HPI narrative: 49-year-old female presents with concern for a cyst on her right labia. Reports it has been there for several weeks and has gotten very large and painful. She reports she had a similar cyst on the other side that drained on its own. Reports this 1 is not draining on its own. MD complaint: other (Redness) Related Data Home Medications Medication Instructions Recorded Confirmed Last Taken Type escitalopram oxalate 20 mg tablet 20 mg PO DAILY 06/16/19 02/05/23 11/26/21 History (Lexapro) bupropion HCl 150 mg 24 hr tablet, 150 mg PO DAILY 10/07/21 02/05/23 11/26/21 History extended release trazodone 50 mg tablet 100 mg PO DAILY 04/15/22 02/05/23 Unknown History pantoprazole 40 mg tablet,delayed 40 mg PO QAM 02/05/23 02/05/23 Unknown History release Allergies Allergy/AdvReac Type Severity Reaction Status Date / Time Latex, Natural Rubber Allergy Severe BURNING Verified 04/27/23 10:22 propoxyphene Allergy Intermediate Unknown Verified 04/27/23 10:22 cephalexin Allergy Unknown Unknown Verified 11/21/24 16:48 codeine AdvReac Mild Nausea and Verified 04/27/23 10:22 Vomiting ketorolac AdvReac Mild NAUSEA AND Verified 04/27/23 10:22 VOMITING tramadol AdvReac Mild N/V Verified 04/27/23 10:22 Review of Systems Review of Systems: CONSTITUTIONAL: Denies malaise, chills, sweats, or fever. EYES: Denies redness, or discharge. ENT: Denies rhinorrhea, congestion, swollen lips, swollen tongue CARDIOVASCULAR: Denies chest pain, palpitations, or edema. RESPIRATORY: Denies cough or dyspnea. GASTROINTESTINAL: Denies abdominal pain, nausea, vomiting SKIN: Reports painful cyst on her right labia. Denies purulent drainage, vesicles, bullae, numbness, pain beyond proportion MUSCULOSKELETAL: Denies joint pain or myalgia. NEUROLOGIC: Denies headache. All systems reviewed & are unremarkable except as noted in HPI and below PMFSH Past Medical History Medical History (Updated 11/21/24 @ 16:57 by Yesenia Ortiz NP) Plantar fasciitis, bilateral Tarsal tunnel syndrome of both lower extremities Screening mammogram, encounter for High cholesterol Hypothyroidism Bulging disc Spinal stenosis Depression COVID-19 Osteoarthritis Fibromyalgia Thyroid disease IBS (irritable bowel syndrome) H/O: HTN (hypertension) Headache, migraine Gall bladder disease Arthritis Anxiety Asthma Allergies Surgical History Surgical History (Updated 04/27/23 @ 10:25 by Sushma Martínez CMA) H/O hernia repair History of hysteroscopy History of cholecystectomy Hx of knee surgery History of carpal tunnel release of both wrists History of hysterectomy, supracervical (~11/08/08) emergency after Ablation H/O colonoscopy (11/27/21) polyp removed precancerous rpt in 5 years Family History Family History Sibling Family history of thyroid disease Hypertension Father Hypertension Mother Hypertension Family history of diabetes mellitus in first degree relative Other Alcoholism Asthma Cancer Cerebrovascular accident Depression Diabetes mellitus Family history of arthritis Family history of cardiovascular disease Heart disease Social History Social History Years smoked: 9 Smoking status: Current every day smoker Tobacco type: cigarettes Second hand tobacco smoke exposure: No Smoking end date: 10/05/20 Alcohol intake: current Alcohol use details: rarely Substance use: current Substance use type: marijuana Other substance usage details: MJ couple times a week Last use: 11-11-21 Lack of Transportation: No Lack of Food: Sometimes True Current Housing: I Have Housing Concerned About Future Housing: No Difficulty Paying Gas/Electric Bills: YES Difficulty Paying for Meds: YES Currently Unemployed: No Education: Associate Degree Difficulty w/ Childcare or Family Care: No Living arrangements: other Additional living arrangements comments: Occupation/Education: unemployed Additional occupation/education comments: disabled back problems Gender identity (if verbalized by the patient): Female Sexual Orientation (if Verbalized by the Patient): Straight or Heterosexual Spiritual care concerns: No Comments At time of signature, agree with nursing past medical, surgical, social and family history. There is no relevant family history pertinent to the presenting complaint Exam Narrative: GENERAL: Well-appearing, well-nourished, and in no acute distress. HEAD: Normocephalic, atraumatic. EYES: PERRLA, conjunctivae clear ENT: Mucous membranes moist. NECK: Supple. No lymphadenopathy CHEST: Clear to auscultation. No respiratory distress. HEART: Regular rate and rhythm. SKIN: Warm, dry. Tender 2 cm palpable abscess with sharp margins noted to the right labia. No vesicles, bullae, necrosis, ecchymosis, crepitus noted. NEURO: Alert and oriented x3. PSYCH: Normal mood and affect Course Course Emergency Course: Patient is aware of diagnosis, understands and agrees to treatment plan. Anticipatory guidance given. Patient agrees to follow-up as directed and is aware of reasons to seek care at the emergency department. Portions of this record may have been created with voice recognition software Level of Care: [facility] Visit Vital Signs Vital signs: Reviewed. Procedures Abscess I/D other: Date of Incision: 11/21/24 Time of Incision: 16:54 Side (if applicable): right Local Anesthetic: lidocaine 1% Amount of anesthesia used (mL): 4 Technique: incised with #11 blade Amount of fluid expressed (mL): 2 Irrigation: Yes Packing used?: none I&D Results: Pus MDM - Skin/Abscess/Foreign Bdy MDM Narrative Medical decision making narrative: I evaluated this in the [facility] care. History is obtained from patient who is an independent historian and physical exam was performed. Available medical records were reviewed. Exam findings and relevant testing show no acute concerns or changes; patient is non-toxic appearing and is in no distress. No risk factors or findings concerning for epidural abscess, diskitis, vertebral osteomyelitis, cord compression, cauda equina, vertebral fracture or bone malignancy, AAA, or pyelonephritis. Patient instructed to consider further imaging and workup through their primary care physician as an outpatient if symptoms persist. Does not appear at this time to be erythema multiforme, bullous, SJS, TEN; no evidence at this time to suggest RMSF, NSTI, endocarditis or Lyme disease; patient looks well, nontoxic and is tolerating oral intake; no neurologic signs or symptoms; no headache, photophobia or neck pain; afebrile. Patient does not have history of of penetrating trauma, laceration, blunt trauma, recent surgery, immunosuppression, malignancy, obesity, alcoholism, corticosteroid use. Discussed the importance of follow-up, patient agrees; question, cellulitis versus necrotizing soft tissue infection versus abscess. Patient is appropriate for outpatient treatment and follow-up. Critical Care Time Critical Care Time Critical Care Time: No Discharge Plan Discharge Clinical Impression: Abscess Patient Disposition: Home Condition: Stable Instructions: Antibiotic Form, Abscess Incision and Drainage (DC) Additional Instructions: You have had an abscess drained at [facility]. You may shower - let the soapy water clean your wound, do not scrub it. Keep your wound covered to prevent transmission of infection to other people. Follow up with your primary care physician in 2-3 days for a wound check. Go to the Emergency Department immediately if you develop any of the following symptoms: Fevers, Increased redness or swelling around where your abscess was, Increased pain, or Generalized weakness or vomiting Please Keep the wound covered and dry. Once a day: wash the wound with soap/water, apply bacitracin or neosporin and re-cover the wound. If you have any worsening of symptoms, including severe pain/swelling/numbness/changes in sensation/weakness, redness which expands more than it is right now or any other concerns please return to the ED immediately. Patient Language: Botswanan Prescriptions: New clindamycin HCl 300 mg capsule 300 mg PO Q8H 7 Days Qty: 21 0RF No Action trazodone 50 mg tablet 100 mg PO DAILY gabapentin 100 mg capsule 100 mg PO .COMPLEX Qty: 90 3RF Rx Instructions: 100 mg orally at bedtime for 1 week, then increase to twice a day for 1 week, then increase to three times a day; bupropion HCl 150 mg tablet extended release 24 hr 150 mg PO DAILY lisinopril 20 mg tablet 20 mg PO DAILY Qty: 90 1RF rosuvastatin 40 mg tablet 40 mg PO DAILY Qty: 90 1RF pantoprazole 40 mg tablet,delayed release (DR/EC) 40 mg PO QAM levothyroxine 50 mcg tablet 50 mcg PO DAILY Qty: 90 3RF escitalopram oxalate [Lexapro] 20 mg tablet 20 mg PO DAILY fluticasone propionate [Allergy Relief (fluticasone)] 50 mcg/actuation spray,suspension 2 spray NASAL DAILY Qty: 16 0RF albuterol sulfate 90 mcg/actuation HFA aerosol inhaler 1 inh inhalation Q4H PRN (Reason: shortness of breath or wheezing) Qty: 8.5 0RF hydrochlorothiazide 12.5 mg tablet 12.5 mg PO DAILY Qty: 90 1RF nystatin 100,000 unit/gram ointment 1 applic topical DAILY Qty: 30 1RF Follow-up/Referrals: UNKNOWN,DOCTOR [Primary Care Provider] - Time of Disposition: 17:24
[2024-11-21 16:49] VITALS: BP 147/80; PULSE 79; RESP 16; TEMP 36.6; O2SAT 100
== END 2024-11-21 17:38 | disposition home or self-care (01) ==
PROVIDERS: Emergency Provider Nurse Practitioner
DX: N76.4 Abscess of vulva (principal); Z87.891 Personal history of nicotine dependence; E78.00 Pure hypercholesterolemia, unspecified; E03.9 Hypothyroidism, unspecified; M79.7 Fibromyalgia; E07.9 Disorder of thyroid, unspecified; I10 Essential (primary) hypertension; M19.90 Unspecified osteoarthritis, unspecified site; J45.909 Unspecified asthma, uncomplicated; M48.00 Spinal stenosis, site unspecified; F41.9 Anxiety disorder, unspecified; F32.A Depression, unspecified; Z86.16 Personal history of COVID-19
CPT/HCPCS: 56405; 99213; G0463